=== PATIENT | female | born 1965 | race Caucasian/White ===

== ENCOUNTER → 2017-04-13 | Day surgery (SDC) | payer BC ==
[~2017-04-13] VITALS: Ht 167.6 cm; Wt 79.8 kg
[~2017-04-13] MED LIST: LEVORA PO; NORCO 5-325 TA1 EACH PO; TYLENOL325 MG PO; WELLBUTRIN XL300 M1 PO; WELLBUTRIN75 MG PO; ZOLOFT100 MG PO; ZOLOFT50 MG PO
--- NOTE | ~2017-04-13 | OR ---
PATIENT'S NAME: JOANNA KRAUSE [facility] AGE: 52 Y [address] ROOM: [place] [id number] LOCATION: [facility] [place] ADMIT DATE: 04/13/2017 OR/Procedure Report DISCHARGE DATE: FAMILY PHYSICIAN: Fadumo Good MD ATTENDING PHYSICIAN: Jordy Wells SURGEON: Jordy Wells MD PIPE COVERER: DATE OF PROCEDURE: 04/13/2017 PREOPERATIVE DIAGNOSIS: Symptomatic cholelithiasis. POSTOPERATIVE DIAGNOSIS: Symptomatic cholelithiasis. PROCEDURE: Laparoscopic cholecystectomy with intraoperative cholangiogram. FINDINGS: The patient's common bile duct was mildly dilated. A filling defect was not identified. ESTIMATED BLOOD LOSS: Minimal. COMPLICATIONS: None. INDICATIONS: The patient is a 52-year-old female, who presented with abdominal pain, right upper quadrant. There was initially a question of choledocholithiasis; however, when she came, she was having no pain, LFTs were normal. Ultrasound revealed very mild dilatation of her duct. We discussed cholecystectomy with intraoperative cholangiogram with the patient and the risks, benefits, and alternatives and she elected to proceed. DESCRIPTION OF PROCEDURE: The patient was taken to the operating room. She was supine, given IV sedation. Her abdomen was prepped with ChloraPrep and sterilely draped. Local anesthetic was infiltrated just superior to the umbilicus. A transverse incision was created. The abdomen was elevated. A Veress needle was inserted. Pneumoperitoneum was induced. Following this, a 5 mm trocar was inserted followed by insertion of the camera. There was no injury from initial trocar placement. Three more trocars were then positioned, an 11 mm epigastric and two 5 mm right subcostal ports. Skin overlying the peritoneum was first anesthetized prior to making the incisions. All these 3 trocars were inserted under direct visualization. The gallbladder was grasped and was elevated. There were adhesions that had to be taken down. This did include the duodenum. The infundibulum was grasped and retracted inferolaterally to expose the Calot's triangle. The cystic duct and artery were dissected around circumferentially. We were able to obtain a critical window. The cystic duct was clipped near the gallbladder. This was partially transected. The cholangiogram catheter was then inserted. We were able to PATIENT'S NAME: JOANNA KRAUSE S [facility] AGE: 52 Y [address] ROOM: [place] [id number] LOCATION: [facility] [place] ADMIT DATE: 04/13/2017 OR/Procedure Report DISCHARGE DATE: FAMILY PHYSICIAN: Fadumo Good MD ATTENDING PHYSICIAN: Jordy Wells obtain a cholangiogram. This revealed free flow of contrast into the duodenum. The common bile duct was mildly dilated, but a filling defect was not present. There was also flow of contrast into both right and left hepatic ducts. Once cholangiogram was obtained, the cystic duct was doubly clipped and divided. The cystic artery was also doubly clipped and divided. The gallbladder was then removed from the liver bed using electrocautery. This was grasped and brought out through the epigastric port site. The liver bed was then inspected. It appeared hemostatic. The clips appeared to be in good position on both the cystic duct and artery. The area was irrigated. Fluid was removed. The pneumoperitoneum was released. The trocars were removed. The trocar sites appeared hemostatic. The fascia of the epigastric port site was approximated with 0 Vicryl suture followed by skin closure of all 4 port sites with 4-0 Monocryl suture. Steri-Strips and sterile dressings were placed. The patient was extubated and sent to recovery in good condition. MD KAREL HOWELLO/emigdiol /[id number] d: 04/13/172051 t: 04/27/171933, OPERATIVE SUMMARY
== END | disposition disaster alternative care site (69) ==
LOC: GPOC 04-12 13:00 → GSDC 08:39
PROC: 0FT44ZZ Resection of Gallbladder, Percutaneous Endoscopic Approach (ICD-10-PCS; principal; 2017-04-13)
PROC: BF0CYZZ Plain Radiography of Hepatobiliary System, All using Other Contrast (ICD-10-PCS; principal; 2017-04-13)
DX: K80.20 Calculus of gallbladder without cholecystitis without obstruction (principal); F32.9 Major depressive disorder, single episode, unspecified; Z98.890 Other specified postprocedural states; Z79.899 Other long term (current) drug therapy
CPT/HCPCS: J0694; J1100; J2001; J2250; J2405; J3010; J7030